=== PATIENT | female | born 1995 | race Caucasian/White ===

== ENCOUNTER 2018-02-13 11:15 | Emergency (ER) | payer OTHER, SELFPAY ==
[2018-02-13 11:16] VITALS: BP 131/76; PULSE 97; RESP 18; TEMP 36.6; O2SAT 99; BMI 24.5
[2018-02-13 11:47] LABS: Glucose, Dipstick Normal (Normal); Ketone-Dipstick 5 mg/dl (Negative); Leukocyte Esterase-Dipstick 25 /ul (Negative); Nitrite-Dipstick Negative (Negative); Occult Blood-Urine 25 /ul (Negative); Protein-Dipstick 15 mg/dl (Negative); Specific Gravity, Urine 1.015 (1.002-1.030); Urine Bilirubin Dipstick Negative (Negative); Urine Urobilinogen Normal (Normal)
[2018-02-13 11:48] LABS: Color, Urine Yellow (Yellow); Urine Clarity Clear (Clear)
--- NOTE | 2018-02-13 11:58 | US_ITS ---
STUDY: ABDOMINAL ULTRASOUND - RIGHT UPPER QUADRANT REASON FOR VISIT: Female, 22 years old. Pain, nausea TECHNIQUE: Ultrasound evaluation of the right upper quadrant was performed with real-time and static castro-scale imaging. TECHNICAL QUALITY: Adequate. COMPARISON: None. FINDINGS: Liver: The liver measures 11.2 cm. There is normal echogenicity of the liver. The bile ducts are within normal limits. There is hepatic color flow. The direction of portal flow is hepatopetal. There is no demonstrated mass lesion. Gallbladder: Normal distended gallbladder. The gallbladder wall measures 2.6 mm. There is a negative sonographic Castillo's sign. There is no pericholecystic fluid. There are no gallstones. Common Bile Duct (C.B.D.): The common bile duct measures 3.3 mm. Pancreas: There is nonvisualization of the pancreas. Right Kidney: Normal size of the right kidney. The right kidney measures 11.1 x 4.1 x 4.8 cm. Normal renal cortex. The right cortex measures 1.3 cm. There is no demonstrated renal mass or cyst. There is no right hydronephrosis. US/Gallbladder IMPRESSION: Normal right upper quadrant ultrasound examination. Note that the pancreas cannot be visualized secondary to overlying bowel gas. Electronically Signed: Dayana Romero MD at 13:32 EST , Service support ,
--- NOTE | 2018-02-13 11:58 | ED.VISSUMM ---
- ER Visit Summary Date of Service: 02/13/18 Chief Complaint: Abdominal pain History of Present Illness: The patient is a [address] Catalan. She reports she has abdominal pain that began 3 days ago. It is continuous waxing and waning pain. She describes it as sharp and stabbing. States is 10 out of 10 at worst and 2 out of 10 currently. Is worsened by food or laying on her back. Is relieved by nothing. She has had nausea without vomiting. She denies any diarrhea. She reports her last bowel was yesterday after taking magnesium citrate. Last bowel movement prior to that was 3 days ago. Typically she goes every other day. She denies any blood in her stools or black tarry stools. No dysuria or frequency. No vaginal discharge. She just finished her last menstrual period. She states that she has not had this previously. She denies any history of fatty or spicy food intolerance. Physical Examination: Vitals: Stable. Afebrile. General: Well-nourished and well-developed. Head: Normocephalic atraumatic. Neck: Supple, no lymphadenopathy. No JVD. Nontender. Cardiovascular: Regular rate and rhythm. No murmurs. Respiratory: No respiratory distress. Clear to auscultation bilaterally. Abdominal: Soft, moderate epigastric and right upper quadrant tenderness to palpation, nondistended, normal bowel sounds. No guarding, rebound, or peritoneal signs. Back: Nontender. Extremities: Nontender, no edema. Skin: Normal color, no rash. Neurologic: Alert and oriented ?3. Cranial nerves II through XII are intact. Normal strength and sensation. Psych: Normal affect. Test Results: CBC is remarkable for hemoglobin of 15.4 with 19 lymphocytes. Chem-7 is normal. LFTs marked for globulin 4.5. Lipase normal. UA is negative. test is negative. Clinical Impression(s) from Imaging Studies Gallbladder Ultrasound 02/13/18 11:58 IMPRESSION: Normal right upper quadrant ultrasound examination. Note that the pancreas cannot be visualized secondary to overlying bowel gas. Electronically Signed: Dayana Romero MD at 13:32 EST , Service support , Emergency Department Course and Treatment: Patient was treated with Toradol and Zofran IV. She is resting comfortably. Treatment Plan: Had a discussion with the patient about the possible etiology of this. It does not seem to be biliary in nature. She will be discharged on Zantac and Zofran. Instructed to follow-up with her primary care physician in 3-5 days if not improving. Return to the emergency department for any worsening symptoms. Disposition: To home in improved and stable condition. Impression: 1. Abdominal pain, uncertain cause. This note was generated with [employer] dictation software. It may contain incorrect words, spelling, and punctuation that were not noted in review of the chart prior to signing ED Disposition - Plan for ED Patient: Disposition: Home or Assisted Living Chief Complaint: Abd Pain Instructions: ED Abdominal Pain Unkn Cause Prescriptions: Ondansetron [Zofran Odt] 4 mg PO Q8H PRN PRN #10 tablet PRN Reason: Nausea Ranitidine [Zantac] 300 mg PO DAILY #30 tablet Referrals: Miguelina Medina MD [Primary Care Provider] - 3-5 Days if not improving
[2018-02-13 12:01] LABS: Bacteria 1+ /hpf (None Seen); Mucous, Urine 2+ /hpf (<or=2+); Squamous Epithelial Cells - UA 0-5 SEEN /hpf (5-10); White Blood Cells 0-5 SEEN /hpf (0-5)
[2018-02-13 12:02] LABS: Red Blood Cells-Urine 0-5 SEEN /hpf (0-5)
[2018-02-13] MEDS: 0.9% Normal Saline 1,000 ML 1000 ML IV (12:37)
[2018-02-13] MEDS: Ketorolac 30 MG/ML Syringe IV (12:38)
[2018-02-13] MEDS: Ondansetron 4 MG/2 ML Vial IV (12:38)
[2018-02-13 12:44] LABS: Absolute Lymphocyte Count 1.19 X10^3/ul (0.83-4.51); Absolute Neutrophil Count 4.4 X10^3/uL (2.0-7.7); Basophil# 0.03 X10^3/uL; Basophil% 0.5 % (0-1); Eosinophil# 0.13 X10^3/uL; Hematocrit 46.8 % (37-47); Hemoglobin 15.4 g/dl (12.0-15.0); Lymphocyte # 1.19 X10^3/ul (4.0); Lymphocyte % 18.7 % (19-41); Mean Corp Hgb Conc 32.9 g/gl (32-36); Mean Corpuscular Hgb 31.4 pg (27.0-32.0); Mean Corpuscular Volume 95.3 fL (81-99); Mean Platelet Vol. 9.6 fl (6.2-12.0); Monocyte# 0.65 X10^3/uL; Monocyte% 10.2 % (0-10); Neutrophil # 4.35 X10^3/uL (2.7-7.7); Neutrophil % 68.6 % (47-70); POSITIVE COUNT NO; POSITIVE DIFFERENTIAL NO; POSITIVE MORPHOLOGY NO; Platelet Count 273 K/mm3 (150-450); RBC Distribution Width CV 12.4 % (11.6-14.6); RBC Distribution Width SD 43.2 fl (35.1-43.9); Red Blood Count 4.91 M/mm3 (4.2-5.4); White Blood Count 6.4 K/mm3 (4.4-11.0)
[2018-02-13 12:58] LABS: AST(SGOT) 30 U/L (15-37); Alanine Aminotransfer ALT/SGPT 55 U/L (13-56); Albumin, Serum 3.6 g/dL (3.2-5.0); Alkaline Phosphatase 50 U/L (45-117); Anion Gap 5 (5-15); BUN 15 mg/dL (7-18); BUN/Creat Ratio 19.7 RATIO (10-20); Calcium,Total 8.6 mg/dL (8.5-10.1); Chloride 104 mmol/L (98-107); Creatinine, Serum 0.76 mg/dL (0.55-1.02); EST Glomerular Filtration Rate 101 mL/min (>60); Est Glom Filt Rate - Afr Amer 122 mL/min (>60); Estimated Creatinine Clearance 108.69 ml/min; Globulin 4.5 g/dL (2.2-4.2); Glucose 81 mg/dL (74-106); Lipase 155 U/L (73-393); Protein, Total 8.1 g/dL (6.4-8.2); Sodium Level 138 mmol/L (136-145)
[2018-02-13 13:31] LABS: Pregnancy, Serum, hCG Quali. NEGATIVE Negative (0-9 Nonpreg)
[2018-02-13 14:05] VITALS: BP 118/75; PULSE 68; RESP 15; O2SAT 98
== END 2018-02-13 14:08 | disposition home or self-care (01) ==
PROVIDERS: Emergency Provider Emergency Medicine; Family Provider Internal Medicine; PCP Internal Medicine
DX: R10.11 Right upper quadrant pain (principal); R10.13 Epigastric pain; R11.0 Nausea; R68.83 Chills (without fever)
CPT/HCPCS: 76705; 80048; 80076; 81001; 83690; 84703; 85025; 96361; 96374; 96375; 99283; J7030; A4216; J2405

== ENCOUNTER 2018-02-17 10:21 | Emergency (ER) | payer OTHER, SELFPAY ==
[2018-02-17 10:23] VITALS: BP 135/71; PULSE 99; RESP 17; TEMP 36.8; O2SAT 100; BMI 24.7
--- NOTE | 2018-02-17 10:36 | CT_ITS ---
STUDY: CT ABDOMEN AND PELVIS WITH CONTRAST REASON FOR EXAM: Female, 22 years old. Abdominal pain and nausea. RADIATION DOSAGE (If Supplied By Facility): CTDIvol = ( 11.19 ) mGy, DLP = ( 580.51 ) mGycm TECHNIQUE: Transaxial images were obtained from the dome of the diaphragm to the symphysis pubis with oral contrast. 100 ml of Isovue 300 contrast was administered. Sagittal and coronal images were reconstructed. Individualized dose optimization techniques were used for this CT. COMPARISON: Comparison is made with prior study dated January 30, 2017. FINDINGS: Calcified granuloma in the right lower lobe. The visualized portions of the heart are within normal limits. Normal liver. Normal gallbladder and extrahepatic biliary system. There are multiple benign calcified granulomata of the spleen. Normal pancreas. Normal bilateral adrenal glands. Normal right kidney. Normal left kidney. Normal visualized stomach. Normal small intestine. Diffuse circumferential wall thickening of the entire colon with increased markings in the surrounding peritoneal fat. Findings are in keeping with a pancolitis. There is non-visualization of the appendix. Normal abdominal aorta. Normal inferior vena cava. No enlarged lymph nodes are seen in the mesentery in the right lower quadrant suggestive of a mesenteric adenitis. Normal urinary bladder. Minimal amount of free fluid in the cul-de-sac. Small follicles are seen in the left ovary. Normal abdominal wall. Normal osseous structures. CT/Abdomen/Pelvis WITH Contrast IMPRESSION: Gibson colitis. Mesenteric adenitis. Electronically Signed: Clemente Siegel MD at 12:44 EST Tel [phone], Service support ,
--- NOTE | 2018-02-17 10:38 | ED.VISSUMM ---
- ER Visit Summary Date of Service: 02/17/18 Chief Complaint: Abdominal pain History of Present Illness: The patient is a 22 F presenting with abdominal pain. She states this started 1 week ago. The pain is always there but waxes and wanes. She does not recall anything that makes this better or worse. She does not believe it worsens with food. She was seen in the ED on for similar complaints. She had gallbladder ultrasound at that time which was unremarkable. She complains of continued pain. She has nausea without vomiting. She has diarrhea. Denies urinary complaints. Today she noted blood in her stool. She has had subjective fever. Denies other complaints. Physical Examination: Vitals are stable. Patient is afebrile. Alert no acute distress. HEENT exam is unremarkable. Neck is supple. Lungs are clear and equal bilaterally. Heart is regular rate and rhythm. Abdomen is soft epigastric and diffuse tenderness with no rebound or guarding Extremities are unremarkable. Skin is warm and dry. Remainder of exam is unremarkable. Emergency Department Course and Treatment: Patient given IV fluids, Zofran. CBC, chemistries unremarkable. Liver lipase are normal. Urinalysis unremarkable. HCG negative. Stool is guaiac negative. CT abdomen pelvis shows pancolitis, mesenteric adenitis. On reevaluation, patient is feeling improved. Discussed with Dr. Guajardo. Recommend clear liquid diet and Flagyl. Patient declines admission. She will follow-up with Dr. Guajardo and her primary care physician. She is advised to return to ED for any worsening complaints. Disposition: Discharge home Impression: Pancolitis This note was generated with [employer] dictation software. It may contain incorrect words, spelling, and punctuation that were not noted in review of the chart prior to signing ED Disposition - Plan for ED Patient: Chief Complaint: Abd Pain Referrals: Miguelina Medina MD [Primary Care Provider] -
[2018-02-17 11:01] LABS: Color, Urine Yellow (Yellow); Glucose, Dipstick Normal (Normal); Leukocyte Esterase-Dipstick 25 /ul (Negative); Nitrite-Dipstick Negative (Negative); Occult Blood-Urine 10 /ul (Negative); Protein-Dipstick 30 mg/dl (Negative); Urine Bilirubin Dipstick Negative (Negative); Urine Clarity Sl. Cloudy (Clear); Urine Urobilinogen Normal (Normal)
[2018-02-17] MEDS: 0.9% Normal Saline 1,000 ML 1000 ML IV (11:02)
[2018-02-17] MEDS: Ondansetron 4 MG/2 ML Vial IV (11:02)
[2018-02-17 11:07] LABS: Absolute Lymphocyte Count 1.84 X10^3/ul (0.83-4.51); Absolute Neutrophil Count 5.4 X10^3/uL (2.0-7.7); Basophil# 0.06 X10^3/uL; Basophil% 0.7 % (0-1); Eosinophil# 0.25 X10^3/uL; Eosinophils% 2.9 % (0-5); Hemoglobin 14.8 g/dl (12.0-15.0); Lymphocyte # 1.84 X10^3/ul (4.0); Lymphocyte % 21.6 % (19-41); Mean Corp Hgb Conc 32.9 g/gl (32-36); Mean Corpuscular Hgb 31.2 pg (27.0-32.0); Mean Corpuscular Volume 94.7 fL (81-99); Mean Platelet Vol. 9.6 fl (6.2-12.0); Monocyte# 0.95 X10^3/uL; Monocyte% 11.2 % (0-10); Neutrophil % 63.5 % (47-70); Platelet Count 323 K/mm3 (150-450); RBC Distribution Width CV 12.2 % (11.6-14.6); Red Blood Count 4.75 M/mm3 (4.2-5.4); White Blood Count 8.5 K/mm3 (4.4-11.0)
[2018-02-17 11:07] LABS: Ketone-Dipstick 150 mg/dl (Negative)
[2018-02-17 11:08] LABS: POSITIVE COUNT NO; POSITIVE DIFFERENTIAL NO; POSITIVE MORPHOLOGY NO
[2018-02-17 11:11] LABS: Bacteria 1+ /hpf (None Seen); Mucous, Urine 2+ /hpf (<or=2+); Red Blood Cells-Urine 0-5 SEEN /hpf (0-5); Squamous Epithelial Cells - UA 5-10 SEEN /hpf (5-10); White Blood Cells 0-5 SEEN /hpf (0-5)
[2018-02-17 11:19] LABS: AST(SGOT) 17 U/L (15-37); Alanine Aminotransfer ALT/SGPT 36 U/L (13-56); Albumin, Serum 3.5 g/dL (3.2-5.0); Alkaline Phosphatase 56 U/L (45-117); Anion Gap 7 (5-15); BUN 11 mg/dL (7-18); BUN/Creat Ratio 12.6 RATIO (10-20); Calcium,Total 8.3 mg/dL (8.5-10.1); Chloride 101 mmol/L (98-107); Creatinine, Serum 0.87 mg/dL (0.55-1.02); EST Glomerular Filtration Rate 86 mL/min (>60); Est Glom Filt Rate - Afr Amer 104 mL/min (>60); Estimated Creatinine Clearance 94.95 ml/min; Globulin 4.6 g/dL (2.2-4.2); Glucose 84 mg/dL (74-106); Lipase 177 U/L (73-393); Potassium 3.5 mmol/L (3.5-5.1); Protein, Total 8.1 g/dL (6.4-8.2); Sodium Level 135 mmol/L (136-145)
[2018-02-17 11:35] LABS: Pregnancy, Serum, hCG Quali. NEGATIVE Negative (0-9 Nonpreg)
[2018-02-17] MEDS: 0.9% Normal Saline 1,000 ML 999 ML IV (12:02)
[2018-02-17 12:36] VITALS: BP 130/78; PULSE 84; RESP 18; O2SAT 97
--- NOTE | 2018-02-17 13:59 | ED.DEP ---
ED Disposition - Plan for ED Patient: Chief Complaint: Abd Pain Instructions: ED Abdominal Pain Unkn Cause Prescriptions: Ondansetron [Zofran Odt] 4 mg PO Q8H PRN PRN #10 tablet PRN Reason: Nausea Dicyclomine HCl [Bentyl] 20 mg PO TIDAC #20 capsule Metronidazole [Flagyl] 500 mg PO Q8H #21 tablet Referrals: Miguelina Medina MD [Primary Care Provider] - Vitaly Guajardo MD [STAFF PHYSICIAN] -
[2018-02-17] MEDS: metroNIDAZOLE 500 MG Tablet PO (14:11)
[2018-02-17 14:16] VITALS: BP 120/72; PULSE 80; RESP 18; O2SAT 98
== END 2018-02-17 14:19 | disposition home or self-care (01) ==
LOC: ED 10:49
PROVIDERS: Emergency Provider Emergency Medicine; Family Provider Internal Medicine; PCP Internal Medicine
DX: K51.00 Ulcerative (chronic) pancolitis without complications (principal)
CPT/HCPCS: 74177; 80048; 80076; 81001; 82274; 83690; 84703; 85025; 96361; 96374; 99284; J7030; Q9967; A4216; J2405